=== PATIENT | male | born 1990 | race Caucasian/White ===

== ENCOUNTER 2017-01-12 21:04 | Emergency (ER) | payer BC ==
--- NOTE | 2017-01-12 22:04 | RAD ---
RIGHT KNEE FOUR VIEWS: 01/12/17 HISTORY: Fall, right knee pain. FINDINGS/IMPRESSION: There are postop changes and metallic hardware in the patella. No acute fracture or dislocation is o therwise seen. POS: [facility]
== END 2017-01-12 22:30 | disposition left against medical advice (07) ==
LOC: ERS 21:04
DX: M25.561 Pain in right knee (principal); J45.909 Unspecified asthma, uncomplicated; X50.1XXA Overexertion from prolonged static or awkward postures, initial encounter

== ENCOUNTER 2017-06-01 00:02 | Emergency (ER) | payer BC, OTHER, SELFPAY | END 2017-06-01 00:49 | disposition home or self-care (01) | LOC: SCSER 00:02 | DX: M25.561 Pain in right knee (principal); G89.29 Other chronic pain | CPT/HCPCS: 99283 ==